=== PATIENT | male | born 1995 | race Two or more races ===

== ENCOUNTER 2024-03-05 19:49 | Emergency (ER) | payer MEDICAID, SELFPAY ==
[2024-03-05 19:51] VITALS: BMI 22.4
[2024-03-05 19:52] VITALS: BP 190/93; PULSE 84; RESP 18; TEMP 36.4; O2SAT 99
[2024-03-05 20:01] VITALS: PULSE 87; RESP 18; O2SAT 98
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
[2024-03-05 20:11] VITALS: BP 138/101; PULSE 85; RESP 20; O2SAT 98
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
--- NOTE | 2024-03-05 20:36 | PC.NURSE ---
Pt to XR a this time via wheelchair.
[2024-03-05 21:21] VITALS: BP 118/83; PULSE 85; RESP 17; TEMP 36.6; O2SAT 96
[2024-03-05] MEDS: IBUPROFEN TAB 600 MG TABLET PO (21:21)
== END 2024-03-05 21:23 | disposition home or self-care (01) ==
LOC: SERX 21:50
PROVIDERS: Emergency Provider Emergency Medicine
DX: S20.229A Contusion of unspecified back wall of thorax, initial encounter (principal); S20.219A Contusion of unspecified front wall of thorax, initial encounter; S86.911A Strain of unspecified muscle(s) and tendon(s) at lower leg level, right leg, initial encounter; V89.2XXA Person injured in unspecified motor-vehicle accident, traffic, initial encounter; Y92.410 Unspecified street and highway as the place of occurrence of the external cause
CPT/HCPCS: 71045; 72080; 73562; 99283; A9270